=== PATIENT | male | born 1940 | race Caucasian/White ===

== ENCOUNTER → 2017-01-29 | Outpatient (CLI) | payer MEDICARE ==
[2017-01-29 08:44] LABS: CH 31.4; CHCM 33.8; HCT 50.8 % (39.0-53.0); HGB 16.2 gm/dL (13.0-17.5); MCH 29.8 pg (25.0-35.0); MCHC 31.9 g/dL (31.0-37.0); MCV 93.5 fL (80.0-100.0); Mean Platelet Volume 7.4; RBC 5.44 m/uL (4.30-5.90); RDW 15.1 % (11.5-15.5)
[2017-01-29 09:19] LABS: Anion Gap 9 mmol/L; Blood Urea Nitrogen 14 mg/dL (9-20); Calcium 9.2 mg/dL (8.4-10.2); Carbon Dioxide 28 mmol/L (22-30); Chloride 105 mmol/L (98-107); Glucose 97 mg/dL (74-99); Non-African American GFR(MDRD) >60 (>60 ml/min/1.73 sqM); Potassium 4.9 mmol/L (3.5-5.1); Sodium 142 mmol/L (137-145)
== END | disposition home or self-care (01) ==
LOC: LABWHC1 08:16
PROVIDERS: ATTEND Internal Medicine Interventional Cardiology
DX: I48.91 Unspecified atrial fibrillation (principal); I25.10 Atherosclerotic heart disease of native coronary artery without angina pectoris
CPT/HCPCS: 36415; 80048; 84439; 84443; 85027

== ENCOUNTER 2020-08-15 09:52 | Inpatient (IN) | payer MEDICARE ==
--- NOTE | 2020-08-15 10:34 | ED ---
SOB HPI - General Chief Complaint: Shortness of Breath Stated Complaint: SOB/weakness Time Seen by Provider: 08/15/20 10:05 Source: patient, RN notes reviewed Mode of arrival: ambulatory Limitations: no limitations - History of Present Illness Initial Comments: This is a 80-year-old male sent here by his family doctor if complain shortness of breath exertional dyspnea cough with bloody sputum over last couple weeks. He also is had orthopnea. He denies any overt fevers chills sweats chest pain he currently is not short of breath. No other current complaints or modifying factors MD Complaint: shortness of breath - Related Data Home Medications Medication Instructions Recorded Confirmed Atorvastatin [Lipitor] 40 mg PO DAILY 08/15/20 08/15/20 Carvedilol [Coreg] 3.125 mg PO DAILY 08/15/20 08/15/20 Escitalopram [Lexapro] 10 mg PO DAILY 08/15/20 08/15/20 Ezetimibe [Zetia] 10 mg PO DAILY 08/15/20 08/15/20 Warfarin Sodium 6 mg PO SUMOTUWETHSA 08/15/20 08/15/20 Warfarin Sodium 9 mg PO FR 08/15/20 08/15/20 lisinopriL [Zestril] 2.5 mg PO DAILY 08/15/20 08/15/20 Allergies Allergy/AdvReac Type Severity Reaction Status Date / Time No Known Allergies Allergy Verified 08/15/20 11:49 Review of Systems ROS Statement: Those systems with pertinent positive or pertinent negative responses have been documented in the HPI. ROS Other: All systems not noted in ROS Statement are negative. Past Medical History Past Medical History: Hypertension Additional Past Medical History / Comment(s): bypass surgery 2019 History of Any Multi-Drug Resistant Organisms: None Reported Past Surgical History: Coronary Bypass/CABG Past Psychological History: No Psychological Hx Reported Smoking Status: Never smoker Past Alcohol Use History: Occasional Past Drug Use History: None Reported General Exam - General Exam Comments Initial Comments: This is a well-developed well-nourished awake alert oriented 3 male Limitations: no limitations General appearance: alert, in no apparent distress Head exam: Present: atraumatic, normocephalic, normal inspection Eye exam: Present: normal appearance, PERRL, EOMI. Absent: scleral icterus, conjunctival injection, periorbital swelling ENT exam: Present: normal exam, mucous membranes moist Neck exam: Present: normal inspection. Absent: tenderness, meningismus, lymphadenopathy Respiratory exam: Present: normal lung sounds bilaterally. Absent: respiratory distress, wheezes, rales, rhonchi, stridor Cardiovascular Exam: Present: regular rate, normal rhythm, normal heart sounds. Absent: systolic murmur, diastolic murmur, rubs, gallop, clicks GI/Abdominal exam: Present: soft, normal bowel sounds. Absent: distended, tenderness, guarding, rebound, rigid Extremities exam: Present: normal inspection, full ROM, normal capillary refill. Absent: tenderness, pedal edema, joint swelling, calf tenderness Back exam: Present: normal inspection Neurological exam: Present: alert, oriented X3, CN II-XII intact Psychiatric exam: Present: normal affect, normal mood Skin exam: Present: warm, dry, intact, normal color. Absent: rash Course Vital Signs 08/15/20 08/15/20 08/15/20 09:53 10:59 11:30 Temperature 97.8 F Pulse Rate 68 71 Respiratory 18 18 20 Rate Blood Pressure 147/86 152/92 O2 Sat by Pulse 96 96 Oximetry Medical Decision Making - Medical Decision Making I did discuss findings with the patient and his son was present also with Dr. Brooks the patient will be admitted with pulmonary consultation. The lactic acid elevation likely secondary to viral depletion the patient's vitals are stable additionally his white blood cell count within normal limits he had no fever. He will however be given 1antibiotic at this time. - Lab Data Result diagrams: 08/15/20 10:37 08/15/20 10:37 Lab Results 08/15/20 08/15/20 08/15/20 Range/Units 10:37 10:37 10:37 WBC 6.3 (3.8-10.6) k/uL RBC 4.49 (4.30-5.90) m/uL Hgb 13.9 (13.0-17.5) gm/dL Hct 42.6 (39.0-53.0) % MCV 94.9 (80.0-100.0) fL MCH 30.9 (25.0-35.0) pg MCHC 32.6 (31.0-37.0) g/dL RDW 14.7 (11.5-15.5) % Plt Count 254 (150-450) k/uL MPV 7.7 Neutrophils % 71 % Lymphocytes % 16 % Monocytes % 10 % Eosinophils % 3 % Basophils % 0 % Neutrophils # 4.4 (1.3-7.7) k/uL Lymphocytes # 1.0 (1.0-4.8) k/uL Monocytes # 0.6 (0-1.0) k/uL Eosinophils # 0.2 (0-0.7) k/uL Basophils # 0.0 (0-0.2) k/uL PT 11.9 (9.0-12.0) sec INR 1.1 (<1.2) APTT 25.9 (22.0-30.0) sec Sodium 141 (137-145) mmol/L Potassium 3.7 (3.5-5.1) mmol/L Chloride 104 (98-107) mmol/L Carbon Dioxide 29 (22-30) mmol/L Anion Gap 8 mmol/L BUN 17 (9-20) mg/dL Creatinine 0.64 L (0.66-1.25) mg/dL Est GFR (CKD-EPI)AfAm >90 (>60 ml/min/1.73 sqM) Est GFR (CKD-EPI)NonAf >90 (>60 ml/min/1.73 sqM) Glucose 85 (74-99) mg/dL Plasma Lactic Acid Drake (0.7-2.0) mmol/L Calcium 8.8 (8.4-10.2) mg/dL Magnesium 2.0 (1.6-2.3) mg/dL Total Bilirubin 2.1 H (0.2-1.3) mg/dL AST 23 (17-59) U/L ALT 12 (4-49) U/L Alkaline Phosphatase 108 (38-126) U/L Creatine Kinase 66 (55-170) U/L Troponin I (0.000-0.034) ng/mL Total Protein 6.7 (6.3-8.2) g/dL Albumin 3.7 (3.5-5.0) g/dL 08/15/20 08/15/20 Range/Units 10:37 10:37 WBC (3.8-10.6) k/uL RBC (4.30-5.90) m/uL Hgb (13.0-17.5) gm/dL Hct (39.0-53.0) % MCV (80.0-100.0) fL MCH (25.0-35.0) pg MCHC (31.0-37.0) g/dL RDW (11.5-15.5) % Plt Count (150-450) k/uL MPV Neutrophils % % Lymphocytes % % Monocytes % % Eosinophils % % Basophils % % Neutrophils # (1.3-7.7) k/uL Lymphocytes # (1.0-4.8) k/uL Monocytes # (0-1.0) k/uL Eosinophils # (0-0.7) k/uL Basophils # (0-0.2) k/uL PT (9.0-12.0) sec INR (<1.2) APTT (22.0-30.0) sec Sodium (137-145) mmol/L Potassium (3.5-5.1) mmol/L Chloride (98-107) mmol/L Carbon Dioxide (22-30) mmol/L Anion Gap mmol/L BUN (9-20) mg/dL Creatinine (0.66-1.25) mg/dL Est GFR (CKD-EPI)AfAm (>60 ml/min/1.73 sqM) Est GFR (CKD-EPI)NonAf (>60 ml/min/1.73 sqM) Glucose (74-99) mg/dL Plasma Lactic Acid Drake 2.2 H* (0.7-2.0) mmol/L Calcium (8.4-10.2) mg/dL Magnesium (1.6-2.3) mg/dL Total Bilirubin (0.2-1.3) mg/dL AST (17-59) U/L ALT (4-49) U/L Alkaline Phosphatase (38-126) U/L Creatine Kinase (55-170) U/L Troponin I 0.027 (0.000-0.034) ng/mL Total Protein (6.3-8.2) g/dL Albumin (3.5-5.0) g/dL - EKG Data -: EKG Interpreted by Me EKG Comments: Sinus tachycardia with second-degree AV block 21 AV conduction rate 72. To 16 QRS 142 QT/QTC 476/521 - Radiology Data Radiology results: report reviewed (I did review the imaging and report evidence of bilateral lower lobe infiltrates also a 5.5 cm apparent mass in the right lower lobe), image reviewed Disposition Clinical Impression: Right lower lobe lung mass, Hemoptysis, Dehydration, Pneumonitis Disposition: ADMITTED IP TO THIS HOSP Condition: Fair Referrals: Akin Brooks MD [Primary Care Provider] - 1-2 days
[2020-08-15 11:02] LABS: Basophils % (A) 0 %; Eosinophils # (A) 0.2 k/uL (0-0.7); Eosinophils % (A) 3 %; HCT 42.6 % (39.0-53.0); HGB 13.9 gm/dL (13.0-17.5); Lymphocytes % (A) 16 %; MCH 30.9 pg (25.0-35.0); MCHC 32.6 g/dL (31.0-37.0); MCV 94.9 fL (80.0-100.0); Mean Platelet Volume 7.7; Monocytes # (A) 0.6 k/uL (0-1.0); Monocytes % (A) 10 %; Neutrophils # (A) 4.4 k/uL (1.3-7.7); Neutrophils % (A) 71 %; Platelet Count 254 k/uL (150-450); RBC 4.49 m/uL (4.30-5.90); RDW 14.7 % (11.5-15.5); WBC 6.3 k/uL (3.8-10.6)
[2020-08-15 11:06] LABS: INR 1.1 (<1.2); Partial Thromboplastin Time 25.9 sec (22.0-30.0); Prothrombin Time 11.9 sec (9.0-12.0)
[2020-08-15 11:07] LABS: ALT 12 U/L (4-49); AST 23 U/L (17-59); African American GFR (CKD) >90 (>60 ml/min/1.73 sqM); Albumin 3.7 g/dL (3.5-5.0); Alkaline Phosphatase 108 U/L (38-126); Blood Urea Nitrogen 17 mg/dL (9-20); Calcium 8.8 mg/dL (8.4-10.2); Carbon Dioxide 29 mmol/L (22-30); Creatine Kinase 66 U/L (55-170); Glucose 85 mg/dL (74-99); Non-African American GFR(CKD) >90 (>60 ml/min/1.73 sqM); Potassium 3.7 mmol/L (3.5-5.1); Sodium 141 mmol/L (137-145); Total Bilirubin 2.1 mg/dL (0.2-1.3); Total Protein 6.7 g/dL (6.3-8.2)
[2020-08-15 11:25] LABS: Anion Gap 8 mmol/L; Chloride 104 mmol/L (98-107)
--- NOTE | 2020-08-15 11:42 | XR ---
EXAMINATION TYPE: XR chest 2V DATE OF EXAM: 08/15/2020 COMPARISON: None HISTORY: 80 year-old male shortness of breath, difficulty breathing, coughing blood TECHNIQUE: PA and lateral views FINDINGS: Median sternotomy wires. Post-CABG clips the mediastinum. Heart borderline in size. There are small e ffusions with patchy opacities in the mid and lower lungs. Circumscribed 5 x 1 cm mass projecting at the right midlung. IMPRESSION: 1. Further clinical correlation recommended. There are small effusions with interstitial changes, pos sible mild pulmonary vascular congestion. 2. In addition, patchy infiltrates are noted in the lower lungs. Correlate to exclude pneumonia. 3. In addition, there is a possible 5.1 cm right midlung mass for which appropriate workup and manage ment is recommended.
[2020-08-15] MEDS ORDERED: cefTRIAXone IN SWFI 1,000 MG/10 ML SYRINGE IVP STA (12:12)
[2020-08-15] MEDS ORDERED: PNEUMONIA PROTOCOL UTILIZED 1 EACH MISC PO PRN (12:22)
[2020-08-15] MEDS ORDERED: AZITHROMYCIN 500 MG in SODIUM CHLORIDE 0.9% 250 ML IVPB STA (12:22)
[2020-08-15] MEDS ORDERED: SODIUM CHLORIDE 0.9% 1,000 ML IV SCH (12:30)
[2020-08-15] MEDS ORDERED: SODIUM CHLORIDE 0.9% 1,000 ML IV STA ×2 (12:33)
[2020-08-15] MEDS ORDERED: NON FORMULARY DRUG (Warfarin Sodium [Warfarin Sodium] 6 MG Tablet) PO SCH (12:45)
[2020-08-15] MEDS ORDERED: RX INFO: IV CONTRAST WAS GIVEN 1 EACH MISC MISCELLANE PRN (13:32)
--- NOTE | 2020-08-15 14:42 | CT ---
EXAMINATION TYPE: CT chest w con DATE OF EXAM: 08/15/2020 COMPARISON: Chest x-ray dated 08/15/2020 HISTORY: Lung mass. CT DLP: 531 mGycm Automated exposure control for dose reduction was used. CONTRAST: CT scan of the chest is performed with IV Contrast, patient injected with 100 mL of Isovue 300. FINDINGS: LUNGS: The lungs are remarkable for areas of pleural thickening with some associated calcification at the posterior lung bases along the pleural surfaces. There is thickened parenchymal bands especially at the lung bases, thickened interlobular septal lines. Some groundglass opacities are present at th e bilateral lung bases. Fluid attenuation courses along the fissures bilaterally, the soft tissue mas s described on CT corresponds to pseudotumor in the right midlung. There is no pneumothorax seen, dif ficult to exclude minimal effusion. The tracheobronchial tree is patent. MEDIASTINUM: There are no greater than 1 cm hilar or mediastinal lymph nodes. No pericardial effusi on is seen. Coronary artery calcifications are present in the heart is enlarged. Pulmonary artery pr ominence is noted, correlate for pulmonary artery hypertension AORTA: Saccular aneurysm present at the thoracic aorta at the level just distal to the left subclavi an artery origin, there are atheromatous changes, calcifications present at the aortic root and along the aortic wall. OTHER: Calcifications noted within the spleen and liver suggest old granulomatous disease. Arthropat hy noted within the left shoulder. There is thoracic spondylosis. Patient is post median sternotomy. IMPRESSION: Correlate for congestive heart failure, suspect there is fluid present along the fissure s, pseudotumor corresponding to chest x-ray abnormalities. Cardiomegaly, coronary artery disease, cor relate for pulmonary artery hypertension. 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 There is s ome pleural calcification, findings could be due to remote trauma or possibly asbestos related diseas e.
[2020-08-15] MEDS ORDERED: FUROSEMIDE 10 MG/ML 4 ML VIAL IV STA (14:46)
--- NOTE | 2020-08-15 15:22 | P.CNPUL ---
History of Present Illness Consult date: 08/15/20 Reason for consult: lung mass History of present illness: We were consulted to see this patient for lung mass. He is a 80-year-old male patient was been complaining of shortness of breath mainly exertional with some hemoptysis as were the patient described bloody sputum over the past few weeks. This hemoptysis is been going on for the past week as the patient has been About 3-4 Times a Day like the Mucus. I was able to see the mucus sample that was bloody and there were no blood clots of the chance of blood diseases identified. Note that the patient's Coumadin level was apparently elevated and the patient was asked to hold anticoagulation and at a time of his emergency department presentation, his PT/INR was essentially subtherapeutic and within normal limits. He takes Coumadin for long-term atrial fibrillation. His cardiac rhythm was sinus. He did have a left bundle branch block pattern. He denies having any fever or chills and denied having any chest pain. For that reason he presented to the emergency department and a chest x- ray showed cardiomegaly, pulmonary vascular congestion and a 5.1 cm right upper lobe/midlung mass.. Note patient is known to have coronary artery disease and he is undergone previous bypass surgery in 2019. He is known to have hypertension. His EKG showing some sinus tachycardia with a left bundle branch block pattern. The patient is known to have coronary artery disease. He is und ergone previous coronary artery bypass surgery. He has been followed up locally by Dr. Hall, his air hammer operator. He has not undergone any recent cardiac catheterization. He has also outpatient cardiac stress testing the results of which are not available. He does have also a harsh cardiac murmur on examination. No previous history of CVA. No associated lung cancer. 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 Does not use oxygen. Does not use any respiratory medications or inhalers or nebulizers. No recurrent pneumonias. No aspiration. I reviewed the computed tomography scan of the chest was completed on this patient. The findings are more consistent with pseudotumor in the right lung, as the patient had fluid attenuation along the fissures bilaterally along with soft tissue masses described in the right lung and left lower lobe consistent with pseudotumor. There was pleural thickening bilaterally along with calcification the posterior surface of the l ungs and thickening of the parenchymal bands especially in the lung bases along with thickening of interlobular septal lines. There are some limited Pseudomonas opacities bilaterally. No mediastinal lymphadenopathy.. COVID 19 testing was also negative. ProBNP level was elevated Review of Systems Constitutional: Denies chills, Denies fever Eyes: denies as per HPI, denies blurred vision, denies bulging eye, denies decreased vision, denies diplopia, denies discharge, denies dry eye, denies irritation, denies itching, denies pain, denies photophobia, denies loss of peripheral vision, denies loss of vision, denies tunnel vision/blind spots Ears, nose, mouth and throat: Denies headache, Denies sore throat Breasts: absent: as per HPI, gynecomastia Cardiovascular: Reports decreased exercise tolerance, Reports dyspnea on exertion, Reports orthopnea, Reports shortness of breath Respiratory: Reports as per HPI, Reports cough, Reports hemoptysis Gastrointestinal: Reports as per HPI Genitourinary: Reports as per HPI Musculoskeletal: Reports as per HPI Musculoskeletal: absent: ankle pain, ankle stiffness, ankle swelling Integumentary: Reports as per HPI Neurological: Reports as per HPI Psychiatric: Reports as per HPI Endocrine: Reports as per HPI Allergic/Immunologic: Reports as per HPI Past Medical History Past Medical History: Atrial Fibrillation, Coronary Artery Disease (CAD), Hyperlipidemia, Hypertension Additional Past Medical History / Comment(s): bypass surgery 2019 History of Any Multi-Drug Resistant Organisms: None Reported Past Surgical History: Coronary Bypass/CABG Past Psychological History: No Psychological Hx Reported Smoking Status: Never smoker Past Alcohol Use History: Occasional Past Drug Use History: None Reported - Past Family History Father Family Medical History: Cancer Additional Family Medical History / Comment(s): "spider cancer" Mother Family Medical History: No Reported History Additional Family Medical History / Comment(s): Mother lived to be 89yrs. Medications and Allergies Home Medications Medication Instructions Recorded Confirmed Type Atorvastatin [Lipitor] 40 mg PO DAILY 08/15/20 08/15/20 History Carvedilol [Coreg] 3.125 mg PO DAILY 08/15/20 08/15/20 History Escitalopram [Lexapro] 10 mg PO DAILY 08/15/20 08/15/20 History Ezetimibe [Zetia] 10 mg PO DAILY 08/15/20 08/15/20 History Warfarin Sodium 6 mg PO SUMOTUWETHSA 08/15/20 08/15/20 History Warfarin Sodium 9 mg PO FR 08/15/20 08/15/20 History lisinopriL [Zestril] 2.5 mg PO DAILY 08/15/20 08/15/20 History Allergies Allergy/AdvReac Type Severity Reaction Status Date / Time No Known Allergies Allergy Verified 08/15/20 11:49 Physical Exam Vitals: Vital Signs Temp Pulse Resp BP Pulse Ox 08/15/20 13:00 70 22 172/96 97 08/15/20 12:00 70 22 147/88 99 08/15/20 11:30 71 20 152/92 96 08/15/20 10:59 18 08/15/20 09:53 97.8 F 68 18 147/86 96 Intake and Output 08/14/20 08/15/20 08/15/20 22:59 06:59 14:59 Other: Weight 109.316 kg The patient appeared well nourished and normally developed. Vital signs as documented. Head exam is unremarkable. No scleral icterus or corneal arcus noted. Neck is without jugular venous distension, thyromegaly, or carotid bruits. Carotid upstrokes are brisk bilaterally. Lungs sounds are diminished in the patient's tach in lung bases bilaterally. Cardiac exam reveals the PMI to be normally sized and situated. Rhythm is regular. First and second heart sounds normal. There was a harsh grade 4/6 ejection murmur along the left lateral sternal border radiating to the apex and into the neck. rubs or gallops. Abdominal exam reveals normal bowel sounds, no masses, no organomegaly and no aortic enlargement. Extremities are showing some trace edema lower extremities bilaterally and both femoral and pedal pulses are normal.Examination of the skin revealed no evidence of significant rashes, suspicious appearing nevi or other concerning lesions.Neurologically, the patient is awake and alert and the patient does not have any focal neurological deficit. Cranial nerves are es sentially intact. Results - Laboratory Findings CBC and BMP: 08/15/20 10:37 08/15/20 10:37 PT/INR, D-dimer PT 11.9 sec (9.0-12.0) 08/15/20 10:37 INR 1.1 (<1.2) 08/15/20 10:37 Abnormal lab findings: Abnormal Labs 08/15/20 08/15/20 10:37 10:37 Creatinine 0.64 L Plasma Lactic Acid Drake 2.2 H* Total Bilirubin 2.1 H - Diagnostic Findings Chest x-ray: image reviewed CT scan - chest: image reviewed Assessment and Plan Plan: 1 acute dyspnea, likely secondary to underlying CHF. CT scan of the chest was noted. There is evidence of fluid within the patient is an pseudotumor formation. There is also evidence of some limited groundglass changes and thickening of the interlobular septae and this along with a elevated BNP level and JVDs, suggests the possibility of any decompensated CHF. However, the patient also has some chronic changes including pleural thickening especially in lung bases bilaterally. No clear indication of any interstitial lung disease or fibrosis at this point in time. Suspect valvular heart disease and the patient has a harsh cardiac valve, consider aortic stenosis 2 hemoptysis, currently off anticoagulation and the PT/INR is within normal limits and the patient's Coumadin is currently on hold and the exact cause is not clear. Could be related to valvular heart disease if any. Could be related to underlying taken bronchitis complicated further by intake of anticoagulation. The patient is currently on empiric antibiotic coverage. 3 coronary artery disease with previous bypass surgery 4 hypertension 5 hyperlipidemia 6 left bundle branch block pattern 7 Paroxysmal atrial fibrillation long-term medical condition with Coumadin with a subtherapeutic PT/INR. the patient has a left bundle branch block pattern and the patient is currently off anticoagulation for now 8 ex-smoker Plan Obtain records from cardiology regarding his previous cardiac status obtain an echocardiogram to assess valvular function and LV function put the patient on Lasix 40 mg IV push every 12 hours Repeat chest x-ray with next 24-48 hours and anticipate improvement in the size of the pseudotumor with diuresis Empiric antibiotic coverage, I'm agreeable to that Check pro calcitonin level Hold anticoagulation for a while and monitor the hemoptysis We'll continue to follow
[2020-08-15] MEDS: FUROSEMIDE 10 MG/ML 4 ML VIAL IV SCH (20:40)
[2020-08-16] MEDS ORDERED: carvediloL 3.125 MG TAB PO SCH (07:30)
[2020-08-16] MEDS: FUROSEMIDE 10 MG/ML 4 ML VIAL IV SCH ×2 (07:54→21:49)
[2020-08-16] MEDS: ATORVASTATIN 40 MG TAB PO SCH (07:54)
[2020-08-16] MEDS: AZITHROMYCIN 500 MG TAB PO SCH (07:55)
[2020-08-16] MEDS: ESCITALOPRAM 10 MG TAB PO SCH (07:55)
[2020-08-16] MEDS: EZETIMIBE 10 MG TAB PO SCH (07:55)
--- NOTE | 2020-08-16 08:13 | P.HPIM ---
History of Present Illness H&P Date: 08/16/20 Chief Complaint: Hemoptysis This is history and physical on a 80-year-old male with known history of CAD history of bypass and atrial fibrillation who came in with supratherapeutic INR last week. The patient had PT/INR recently in the office which was subtherapeutic but he's developed hemoptysis. Chest x-ray showed 5.1 right midlung's mass. Computed tomography scan shows more likely pseudotumor and CHF. The patient is resting comfortably feels better after having diuresis. No voiding difficulties. No chest pressure per se stated. No overt shortness of breath he is a former smoker who quit about 25 years ago, Review of Systems Constitutional: Reports fatigue, Denies fever Eyes: denies blurred vision, denies pain Ears, nose, mouth and throat: Denies headache, Denies sore throat Cardiovascular: Reports as per HPI Respiratory: Reports hemoptysis Gastrointestinal: Denies abdominal pain, Denies diarrhea, Denies nausea, Denies vomiting Musculoskeletal: Denies myalgias Integumentary: Denies pruritus, Denies rash Past Medical History Past Medical History: Atrial Fibrillation, Coronary Artery Disease (CAD), Hyperlipidemia, Hypertension Additional Past Medical History / Comment(s): bypass surgery 2019 History of Any Multi-Drug Resistant Organisms: None Reported Past Surgical History: Coronary Bypass/CABG Additional Past Surgical History / Comment(s): PCI with stents 2008, 4 vessel CABG at [facility] about 10 yrs ago, colonoscopy with benign polypectomy. Past Anesthesia/Blood Transfusion Reactions: No Reported Reaction Past Psychological History: No Psychological Hx Reported Smoking Status: Never smoker Past Alcohol Use History: Occasional Past Drug Use History: None Reported - Past Family History Father Family Medical History: Cancer Additional Family Medical History / Comment(s): "spider cancer" Mother Family Medical History: No Reported History Additional Family Medical History / Comment(s): Mother lived to be 89yrs. Medications and Allergies Home Medications Medication Instructions Recorded Confirmed Type Atorvastatin [Lipitor] 40 mg PO DAILY 08/15/20 08/15/20 History Carvedilol [Coreg] 3.125 mg PO DAILY 08/15/20 08/15/20 History Escitalopram [Lexapro] 10 mg PO DAILY 08/15/20 08/15/20 History Ezetimibe [Zetia] 10 mg PO DAILY 08/15/20 08/15/20 History Warfarin Sodium 6 mg PO SUMOTUWETHSA 08/15/20 08/15/20 History Warfarin Sodium 9 mg PO FR 08/15/20 08/15/20 History lisinopriL [Zestril] 2.5 mg PO DAILY 08/15/20 08/15/20 History Allergies Allergy/AdvReac Type Severity Reaction Status Date / Time No Known Allergies Allergy Verified 08/15/20 11:49 Physical Exam Vitals: Vital Signs Temp Pulse Pulse Resp BP BP Pulse Ox 08/16/20 07:34 100 08/16/20 07:29 97.9 F 65 16 142/82 97 08/16/20 03:50 98.4 F 60 16 124/74 97 08/15/20 19:15 98.1 F 51 L 17 155/74 98 08/15/20 18:00 98.0 F 71 20 149/73 99 08/15/20 17:00 70 20 143/79 98 08/15/20 15:00 55 L 20 131/86 99 08/15/20 14:00 77 22 141/81 98 08/15/20 13:00 70 22 172/96 97 08/15/20 12:00 70 22 147/88 99 08/15/20 11:30 71 20 152/92 96 08/15/20 10:59 18 08/15/20 09:53 97.8 F 68 18 147/86 96 Intake and Output 08/15/20 08/16/20 08/16/20 22:59 06:59 14:59 Intake Total 200 240 Output Total 1850 800 Balance -1650 -560 Intake: Oral 200 240 Output: Urine 1850 800 Other: # Voids 2 2 # Bowel Movements 1 - Constitutional General appearance: no acute distress - EENT Eyes: EOMI - Neck Neck: no lymphadenopathy - Respiratory Respiratory: bilateral: diminished - Cardiovascular Rhythm: irregularly irregular Heart sounds: normal: S1, S2 Abnormal Heart Sounds: no S3 Gallop - Gastrointestinal General gastrointestinal: soft, no tenderness - Integumentary Integumentary: no cellulitis - Psychiatric Psychiatric: A&O x's 3, appropriate affect, intact judgment & insight Results CBC & Chem 7: 08/15/20 10:37 08/15/20 10:37 Labs: Abnormal Lab Results - Last 24 Hours (Table) 08/15/20 08/15/20 Range/Units 10:37 10:37 Creatinine 0.64 L (0.66-1.25) mg/dL Plasma Lactic Acid Drake 2.2 H* (0.7-2.0) mmol/L Total Bilirubin 2.1 H (0.2-1.3) mg/dL Thrombosis Risk Factor Assmnt - Choose All That Apply Any of the Below Risk Factors Present?: Yes Each Factor Represents 1 point: Obesity (BMI >25) Other Risk Factors: Yes Each Risk Factor Represents 3 Points: Age 75 years or older Other congenital or acquired thrombophilia - If yes, enter type in comment: No Thrombosis Risk Factor Assessment Total Risk Factor Score: 4 Thrombosis Risk Factor Assessment Level: Moderate Risk Assessment and Plan (1) Acute systolic congestive heart failure Current Visit: Yes Status: Acute Code(s): I50.21 - ACUTE SYSTOLIC (CONGESTIVE) HEART FAILURE SNOMED Code(s): 482833901 (2) Dehydration Current Visit: Yes Status: Acute Code(s): E86.0 - DEHYDRATION SNOMED Code(s): 30185611 (3) Hemoptysis Current Visit: Yes Status: Acute Code(s): R04.2 - HEMOPTYSIS SNOMED Code(s): 05385281 (4) Right lower lobe lung mass Current Visit: Yes Status: Acute Code(s): R91.8 - OTHER NONSPECIFIC ABNORMAL FINDING OF LUNG FIELD SNOMED Code(s): 504931833 Plan: Computed tomography scan positive for probable CHF. Reconcile home medications but withhold anticoagulation given hemoptysis. Appreciate pulmonology input. Echocardiogram is pending. If there is decompensation, we'll consult cardiology. Check CBC and CMP in Time with Patient: Greater than 30
--- NOTE | 2020-08-16 09:16 | XR ---
EXAMINATION TYPE: XR chest 2V DATE OF EXAM: 08/16/2020 COMPARISON: 08/15/2020 HISTORY: 80-year-old male pneumonia TECHNIQUE: PA and lateral views FINDINGS: Median sternotomy wires and post-CABG clips. Heart remains borderline in size. Patchy lower lung opac ities persist. 5.2 cm mass right mid to lower lung persists. Trace effusions persist. IMPRESSION: 1. The 5.2 cm mass in the right mid to lower lung appears to correspond to fluid along the minor fiss ure when referring to the patient's recent CT. Correlate for possible CHF. 2. Suspect some underlying chronic pleural parenchymal changes, previous asbestos exposure. Clinicall y correlate. 3. Patchy bibasilar infiltrates could relate to patchy areas of pulmonary edema versus pneumonia. Ove rall unchanged.
--- NOTE | 2020-08-16 09:47 | P.CRDCN ---
History of Present Illness Consult date: 08/16/20 Chief complaint: Shortness of breath History of present illness: This is a 80-year-old gentleman who we're consulted to see today for further frantz luation of shortness of breath and congestive heart failure. The patient does have history of coronary artery disease and he underwent in the past coronary artery bypass grafting the details on that are unavailable at this point. Beside that he does have paroxysmal atrial fibrillation as well as hypertension and also dyslipidemia. For the last week or so he has been experiencing increasing shortness of breath with exertion and he noted that even laying flat in bed make him short of breath. No lower extremities edema or ankle edema. No symptoms of chest pain or chest discomfort. No dizziness or lightheadedness or any feeling of heart racing or fluttering or syncope. No change in the weight. The patient underwent initially a chest x-ray and that showed possible tumor in the mid right lung but subsequently computed tomography scan of the chest showed only finding consistent with heart failure and possible pseudotumor. Currently pulmonary service is on the case. The NT proBNP came in to be elevated. The patient was diagnosed with heart failure and he was started on Lasix. Beside that an echocardiogram was ordered and it is in process to be done. The patient does follow with Dr. Hall in the office on regular basis. On examination he definitely has bilateral rhonchi in both lung bases. No lower extremities edema. More importantly on examination he does have very significant systolic murmur at the right and left upper sternal border with significant diminished in the intensity of S2 finding consistent with at least moderate if not severe aortic stenosis. We'll follow-up on the echocardiogram which is in process to be done. Meanwhile I would recommend continue the patient on IV Lasix. Continue monitor the kidney function and electrolytes. Avoid any significant or aggressive drop in his blood pressure just because of the aortic stenosis. He denies any fever or chills. Denies any cough. Past Medical History Past Medical History: Atrial Fibrillation, Coronary Artery Disease (CAD), Hyperlipidemia, Hypertension Additional Past Medical History / Comment(s): bypass surgery 2019 History of Any Multi-Drug Resistant Organisms: None Reported Past Surgical History: Coronary Bypass/CABG Additional Past Surgical History / Comment(s): PCI with stents 2008, 4 vessel CABG at [facility] about 10 yrs ago, colonoscopy with benign polypectomy. Past Anesthesia/Blood Transfusion Reactions: No Reported Reaction Past Psychological History: No Psychological Hx Reported Smoking Status: Never smoker Past Alcohol Use History: Occasional Past Drug Use History: None Reported - Past Family History Father Family Medical History: Cancer Additional Family Medical History / Comment(s): "spider cancer" Mother Family Medical History: No Reported History Additional Family Medical History / Comment(s): Mother lived to be 89yrs. Medications and Allergies Home Medications Medication Instructions Recorded Confirmed Type Atorvastatin [Lipitor] 40 mg PO DAILY 08/15/20 08/15/20 History Carvedilol [Coreg] 3.125 mg PO DAILY 08/15/20 08/15/20 History Escitalopram [Lexapro] 10 mg PO DAILY 08/15/20 08/15/20 History Ezetimibe [Zetia] 10 mg PO DAILY 08/15/20 08/15/20 History Warfarin Sodium 6 mg PO SUMOTUWETHSA 08/15/20 08/15/20 History Warfarin Sodium 9 mg PO FR 08/15/20 08/15/20 History lisinopriL [Zestril] 2.5 mg PO DAILY 08/15/20 08/15/20 History Allergies Allergy/AdvReac Type Severity Reaction Status Date / Time No Known Allergies Allergy Verified 08/15/20 11:49 Physical Exam Vitals: Vital Signs Temp Pulse Pulse Resp BP BP Pulse Ox 08/16/20 07:34 100 08/16/20 07:29 97.9 F 65 16 142/82 97 08/16/20 03:50 98.4 F 60 16 124/74 97 08/15/20 19:15 98.1 F 51 L 17 155/74 98 08/15/20 18:00 98.0 F 71 20 149/73 99 08/15/20 17:00 70 20 143/79 98 08/15/20 15:00 55 L 20 131/86 99 08/15/20 14:00 77 22 141/81 98 08/15/20 13:00 70 22 172/96 97 08/15/20 12:00 70 22 147/88 99 08/15/20 11:30 71 20 152/92 96 08/15/20 10:59 18 08/15/20 09:53 97.8 F 68 18 147/86 96 Intake and Output 08/15/20 08/16/20 08/16/20 22:59 06:59 14:59 Intake Total 200 240 200 Output Total 1850 800 Balance -1650 -560 200 Intake: Oral 200 240 200 Output: Urine 1850 800 Other: # Voids 2 2 # Bowel Movements 1 - Constitutional General appearance: no acute distress - Respiratory Respiratory: bilateral: rales - Cardiovascular Rhythm: regular Heart sounds: normal: S1, S2 Abnormal Heart Sounds: systolic murmur Results 08/15/20 10:37 08/15/20 10:37 Cardiac Enzymes 08/15/20 08/15/20 Range/Units 10:37 10:37 AST 23 (17-59) U/L Troponin I 0.027 (0.000-0.034) ng/mL Coagulation 08/15/20 Range/Units 10:37 PT 11.9 (9.0-12.0) sec APTT 25.9 (22.0-30.0) sec CBC 08/15/20 Range/Units 10:37 WBC 6.3 (3.8-10.6) k/uL RBC 4.49 (4.30-5.90) m/uL Hgb 13.9 (13.0-17.5) gm/dL Hct 42.6 (39.0-53.0) % Plt Count 254 (150-450) k/uL Comprehensive Metabolic Panel 08/15/20 Range/Units 10:37 Sodium 141 (137-145) mmol/L Potassium 3.7 (3.5-5.1) mmol/L Chloride 104 (98-107) mmol/L Carbon Dioxide 29 (22-30) mmol/L BUN 17 (9-20) mg/dL Creatinine 0.64 L (0.66-1.25) mg/dL Glucose 85 (74-99) mg/dL Calcium 8.8 (8.4-10.2) mg/dL AST 23 (17-59) U/L ALT 12 (4-49) U/L Alkaline Phosphatase 108 (38-126) U/L Total Protein 6.7 (6.3-8.2) g/dL Albumin 3.7 (3.5-5.0) g/dL Current Medications Generic Name Dose Route Start Last Admin Trade Name Freq PRN Reason Stop Dose Admin Atorvastatin Calcium 40 mg 08/16/20 09:00 08/16/20 07:54 Atorvastatin 40 Mg Tab PO 40 mg DAILY CLIFTON Administration Azithromycin 500 mg 08/16/20 09:00 08/16/20 07:55 Azithromycin 500 Mg Tab PO 08/20/20 09:01 500 mg DAILY CL[facility] Administration Carvedilol 3.125 mg 08/16/20 07:30 08/16/20 07:54 Carvedilol 3.125 Mg Tab PO 3.125 mg W/BRKFST CL[place] Administration Ezetimibe 10 mg 08/16/20 09:00 08/16/20 07:55 Ezetimibe 10 Mg Tab PO 10 mg DAILY CL[facility] Administration Escitalopram Oxalate 10 mg 08/16/20 09:00 08/16/20 07:55 Escitalopram 10 Mg Tab PO 10 mg DAILY CL[facility] Administration Furosemide 40 mg 08/15/20 21:00 08/16/20 07:54 Furosemide 10 Mg/Ml 4 Ml Vial IV 40 mg Q12HR CL[facility] Administration Ceftriaxone Sodium 2 gm/ 50 mls @ 100 mls/hr 08/16/20 09:00 08/16/20 07:55 Sodium Chloride IVPB 08/18/20 09:01 100 mls/hr Q24HR CL[facility] Administration Lisinopril 2.5 mg 08/16/20 09:00 08/16/20 07:54 Lisinopril 2.5 Mg Tab PO 2.5 mg DAILY CL[facility] Administration Miscellaneous Information 1 each 08/15/20 12:22 Pneumonia Protocol Utilized 1 Each Misc PO ONCE PRN Per Protocol Miscellaneous Information 1 each 08/15/20 13:32 Rx Info: Iv Contrast Was Given 1 Each Misc MISCELLANE 08/17/20 13:32 DAILY PRN Per Protocol Intake and Output 08/15/20 08/16/20 08/16/20 22:59 06:59 14:59 Intake Total 200 240 200 Output Total 1850 800 Balance -1650 -560 200 Intake: Oral 200 240 200 Output: Urine 1850 800 Other: # Voids 2 2 # Bowel Movements 1 08/15/20 10:37 08/15/20 10:37 Assessment and Plan Assessment: Assessment #1 heart failure exacerbation secondary to probably aortic stenosis #2 aortic stenosis at least in the moderate intensity #3 shortness of breath secondary to the above #4 paroxysmal atrial fibrillation #5 coronary artery disease #6 multiple comorbid conditions Plan #1 continue the IV Lasix for additional 24 hours #2 continue monitor the kidney function and electrolytes #3 continue oral anticoagulation #4 avoid any drop in the blood pressure #5 follow-up on the echocardiogram #6 follow up
--- NOTE | 2020-08-16 10:39 | ECHOF ---
Referral Reason:CHF MEASUREMENTS -------- HEIGHT: 182.9 cm WEIGHT: 109.3 kg BP: 124/74 RVIDd: 4.1 cm (< 3.3) IVSd: 1.4 cm (0.6 - 1.1) LVIDd: 5.4 cm (3.9 - 5.3) LVPWd: 1.8 cm (0.6 - 1.1) IVSs: 1.8 cm LVIDs: 5.3 cm LVPWs: 1.7 cm LAESV Index (A-L): 58.72 ml/m MV EXCURSION: 21.475 mm (> 18.000) MV EF SLOPE: 122 mm/s (70 - 150) EPSS: 0.3 cm MV E Nathan: 0.75 m/s MV DecT: 193 ms MV A Nathan: 0.32 m/s MV E/A Ratio: 2.37 AV maxP.90 mmHg AV meanP.72 mmHg AR PHT: 509 ms RAP: 5.00 mmHg RVSP: 45.16 mmHg FINDINGS -------- Undetermined rhythm. This was a techncally difficult study with suboptimal views, , Lumason utilized for enhancement of im ages. The left ventricular size is normal. There is moderate concentric left ventricular hypertrophy. O verall left ventricular systolic function is mild-moderately impaired with, an EF between 40 - 45 %. The right ventricle is mild to moderately enlarged. LA is severely dilated >40 ml/m2 The right atrial size is normal. There is mild aortic regurgitation. There is severe aortic stenosis present. Peak/mean gradient a cross the Aortic Valve is 78.90mmHg / 52.72mmHg. Mild mitral regurgitation is present. Mild tricuspid regurgitation present. There is moderate pulmonary hypertension. The right ventric ular systolic pressure, as measured by Doppler, is 45.16mmHg. Trace/mild (physiologic) pulmonic regurgitation. The aortic root size is normal. There is no pericardial effusion. CONCLUSIONS -------- 1. This was a techncally difficult study with suboptimal views, , Lumason utilized for enhancement of images. 2. The left ventricular size is normal. 3. There is moderate concentric left ventricular hypertrophy. 4. Overall left ventricular systolic function is mild-moderately impaired with, an EF between 40 - 45 %. 5. The right ventricle is mild to moderately enlarged. 6. LA is severely dilated >40 ml/m2 7. The right atrial size is normal. 8. There is mild aortic regurgitation. 9. There is severe aortic stenosis present. 10. Peak/mean gradient across the Aortic Valve is 78.90mmHg / 52.72mmHg. 11. Mild mitral regurgitation is present. 12. Mild tricuspid regurgitation present. 13. There is moderate pulmonary hypertension. 14. The right ventricular systolic pressure, as measured by Doppler, is 45.16mmHg. 15. Trace/mild (physiologic) pulmonic regurgitation. 16. The aortic root size is normal. 17. There is no pericardial effusion. OCEAN FORWARDER: Miriam Hurt RDCS
--- NOTE | 2020-08-16 11:10 | P.PN ---
Subjective Progress Note Date: 08/16/20 Principal diagnosis: Congestive heart failure He is a 80-year-old male patient was been complaining of shortness of breath mainly exertional with some hemoptysis as were the patient described bloody sputum over the past few weeks. This hemoptysis is been going on for the past week as the patient has been About 3-4 Times a Day like the Mucus. I was able to see the mucus sample that was bloody and there were no blood clots of the chance of blood diseases identified. Note that the patient's Coumadin level was apparently elevated and the patient was asked to hold anticoagulation and at a time of his emergency department presentation, his PT/INR was essentially subtherapeutic and within normal limits. He takes Coumadin for long-term atrial fibrillation. His cardiac rhythm was sinus. He did have a left bundle branch block pattern. He denies having any fever or chills and denied having any chest pain. For that reason he presented to the emergency department and a chest x- ray showed cardiomegaly, pulmonary vascular congestion and a 5.1 cm right upper lobe/midlung mass.. Note patient is known to have coronary artery disease and he is undergone previous bypass surgery in 2019. He is known to have hypertension. His EKG showing some sinus tachycardia with a left bundle branch block pattern. The patient is known to have coronary artery disease. He is undergone previous coronary artery bypass surgery. He has been followed up locally by Dr. Hall, his fiber artist. He has not undergone any recent cardiac catheterization. He has also outpatient cardiac stress testing the results of which are not available. He does have also a harsh cardiac murmur on examination. No previous history of CVA. No associated lung cancer. 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 Does not use oxygen. Does not use any respiratory medications or inhalers or nebulizers. No recurrent pneumonias. No aspiration. I reviewed the computed tomography scan of the chest was completed on this patient. The findings are more consistent with pseudotumor in the right lung, as the patient had fluid attenuation along the fissures bilaterally along with soft tissue masses described in the right lung and left lower lobe consistent with pseudotumor. There was pleural thickening bilaterally along with calcification the posterior surface of the yakaov gs and thickening of the parenchymal bands especially in the lung bases along with thickening of interlobular septal lines. There are some limited Pseudomonas opacities bilaterally. No mediastinal lymphadenopathy.. COVID 19 testing was also negative. ProBNP level was elevated. The patient is seen today 08/16/2020 in follow-up on the regular medical floor. He is currently resting quite comfortably in bed. Awake and alert in no acute distress. Maintaining O2 saturations in the 90s on room air. He's afebrile. Hemodynamically stable. Computed tomography scan of the chest revealed evidence of congestive heart failure. Fluid in the fissure or spotting with pseudotumor. Cardiomegaly. Today's chest x-ray continues to show a 5.2 cm fluid collection in the minor fissure. Underlying chronic pleural parenchymal changes possible previous as best as exposure. Patchy bilateral infiltrates with pulmonary edema. Echocardiogram does reveal mild to moderately impaired left ventricular systolic function with ejection fraction 40-45%. Moderate pulmonary hypertension. There is noted severe aortic stenosis. Mean gradient 52.72 mmHg. He is on Lasix 40 mg IV every 12 hours. -2 L balance. Continue on bronchodilators and DAWSON inhibitors. Warfarin was on hold. The patient had a small amount of hemoptysis last night. No further hemoptysis today. He remains on ceftriaxone and azithromycin. Objective - Vital Signs Vital signs: Vital Signs Temp 97.9 F 08/16/20 07:29 Pulse 65 08/16/20 07:29 Resp 16 08/16/20 07:29 BP 142/82 08/16/20 07:29 Pulse Ox 100 08/16/20 07:34 Intake & Output 08/15/20 08/16/20 08/16/20 18:59 06:59 18:59 Intake Total 440 200 Output Total 1850 800 Balance -1850 -360 200 Weight 109.316 kg Intake: Oral 440 200 Output: Urine 1850 800 Other: # Voids 2 2 # Bowel Movements 1 - Exam GENERAL EXAM: Alert, very pleasant 80-year-old gentleman, on room air, comfortable in no apparent distress. HEAD: Normocephalic. EYES: Normal reaction of pupils, equal size. NOSE: Clear with pink turbinates. THROAT: No erythema or exudates. NECK: No masses, no JVD. CHEST: No chest wall deformity. LUNGS: Equal air entry with basilar crackles, no wheeze, rhonchi or dullness. CVS: S1 and S2 normal with a harsh grade 4/6 ejection murmur, regular rhythm. ABDOMEN: No hepatosplenomegaly, normal bowel sounds, no guarding or rigidity. SPINE: No scoliosis or deformity SKIN: No rashes CENTRAL NERVOUS SYSTEM: No focal deficits, tone is normal in all 4 extremities. EXTREMITIES: There is 1+ peripheral edema. No clubbing, no cyanosis. Peripheral pulses are intact. - Labs CBC & Chem 7: 08/15/20 10:37 08/15/20 10:37 Labs: Abnormal Lab Results - Last 24 Hours (Table) 08/15/20 08/15/20 Range/Units 10:37 10:37 Creatinine 0.64 L (0.66-1.25) mg/dL Plasma Lactic Acid Drake 2.2 H* (0.7-2.0) mmol/L Total Bilirubin 2.1 H (0.2-1.3) mg/dL Assessment and Plan Assessment: 1 Acute hypoxic respiratory failure secondary to an acute exacerbation of systolic congestive heart failure with severe aortic stenosis.. CT scan of the chest was noted. There is evidence of fluid within the patient is an pseudotumor formation. There is also evidence of some limited groundglass changes and thickening of the interlobular septae and this along with a elevated BNP level and JVDs, suggests the possibility of any decompensated CHF. However, the patient also has some chronic changes including pleural thickening especially in lung bases bilaterally. No clear indication of any interstitial lung disease or fibrosis at this point in time. Suspect valvular heart disease and the patient has a harsh cardiac valve, consider aortic stenosis On 08/16/2020 the patient is improved from the pulmonary standpoint. Currently on room air. Diuresed well. -2 L. Echocardiogram did reveal mild to moderately impaired left ventricular systolic function with ejection fraction 40-45%. There is also noted severe aortic stenosis with a mean gradient 52.72 mmHg. Moderate pulmonary hypertension. 2 hemoptysis, currently off anticoagulation and the PT/INR is within normal limits and the patient's Coumadin is currently on hold and the exact cause is not clear. Could be related to valvular heart disease. Could be related to underlying tracheobronchitis complicated further by intake of anticoagulation. The patient is currently on empiric antibiotic coverage in the form of ceftriax one and azithromycin. 3 coronary artery disease with previous bypass surgery [facility] [place] 4 hypertension 5 hyperlipidemia 6 left bundle branch block pattern 7 Paroxysmal atrial fibrillation long-term medical condition with Coumadin with a subtherapeutic PT/INR. the patient has a left bundle branch block pattern and the patient is currently off anticoagulation for now 8 ex-smoker Plan The patient was seen and evaluated by Dr. Caro Echocardiogram results reviewed Continue diuretics, beta blockers, DAWSON Continue empiric antibiotics, obtain pro-calcitonin Follow-up chest x-ray in a.m. We will continue to follow I, the cosigning physician, performed a history & physical examination of the patient. Lungs sounds with crackles in the bilateral posterior bases. Maintaining good O2 saturations in the 90s on room air. I discussed the assessment and plan of care with my nurse practitioner, Jaz Stringer. I attest to the above note as dictated by her.
[2020-08-17 06:45] LABS: Glucose,Whole Blood 87 mg/dL (75-99)
[2020-08-17] MEDS: ATORVASTATIN 40 MG TAB PO SCH (07:41)
[2020-08-17] MEDS: ESCITALOPRAM 10 MG TAB PO SCH (07:41)
[2020-08-17] MEDS: EZETIMIBE 10 MG TAB PO SCH (07:41)
[2020-08-17] MEDS: AZITHROMYCIN 500 MG TAB PO SCH (07:41)
[2020-08-17] MEDS: FUROSEMIDE 10 MG/ML 4 ML VIAL IV SCH ×2 (07:42→19:11)
--- NOTE | 2020-08-17 08:20 | XR ---
EXAMINATION TYPE: XR chest 1V portable DATE OF EXAM: 08/17/2020 CLINICAL HISTORY: Difficulty breathing and CHF progress study. TECHNIQUE: Single AP portable upright view of the chest is obtained. COMPARISON: Chest x-ray from one day earlier. CT chest 2 days ago. FINDINGS: Post-CABG changes with mediastinal clips and sternal wires redemonstrated. Degenerative ch alejandrina left shoulder again seen. There is chronic parenchymal change with bibasilar opacities and tiny bilateral pleural effusions including a pseudomass along the right minor fissure corresponding to loc ulated fluid collection are all redemonstrated. IMPRESSION: Chronic parenchymal changes and cardiomegaly with small to tiny bilateral pleural effusi ons. Bibasilar opacities could reflect areas of infiltrate on background scarring and/or atelectasis. No significant change from most recent x-ray.
--- NOTE | 2020-08-17 08:39 | P.PN ---
Subjective Progress Note Date: 08/17/20 Principal diagnosis: This is a continue progress note on a 72-year-old white male essentially admitted for CHF exacerbation. Appreciate pulmonology in consultation and cardiogenic in consultation. The patient seems more energetic. Echocardiogram does show severe aortic stenosis. The patient states he is emulating much better and feels much better. No significant chest pain no nausea or vomiting. Objective - Vital Signs Vital signs: Vital Signs Temp 98.4 F 08/17/20 07:41 Pulse 66 08/17/20 07:41 Resp 18 08/17/20 07:41 BP 148/77 08/17/20 07:41 Pulse Ox 97 08/17/20 07:41 Intake & Output 08/16/20 08/17/20 08/17/20 18:59 06:59 18:59 Intake Total 520 200 Balance 520 200 Intake: Oral 520 200 Other: # Voids 1 - EENT Eyes: Absent: abnormal pupil - Neck Neck: Absent: lymphadenopathy - Respiratory Respiratory: bilateral: CTA - Cardiovascular Rhythm: regular Heart sounds: normal: S1, S2 Abnormal Heart Sounds: Present: systolic murmur, click - Integumentary Integumentary: Absent: cellulitis - Psychiatric Psychiatric: Present: A&O x's 3 - Labs CBC & Chem 7: 08/15/20 10:37 08/15/20 10:37 Labs: Microbiology - Last 24 Hours (Table) 08/15/20 12:38 Blood Culture Gram Stain - Preliminary Blood Blood Culture - Preliminary Coagulase Negative Staph 08/16/20 07:35 Gram Stain - Preliminary Sputum Sputum Culture - Preliminary 08/15/20 12:38 Blood Culture - Final Blood 08/15/20 10:58 Blood Culture - Preliminary Blood No Growth after 24 hours Assessment and Plan (1) Acute systolic congestive heart failure Current Visit: Yes Status: Acute Code(s): I50.21 - ACUTE SYSTOLIC (CONGESTIVE) HEART FAILURE SNOMED Code(s): 830949657 (2) Dehydration Current Visit: Yes Status: Acute Code(s): E86.0 - DEHYDRATION SNOMED Cod e(s): 19297158 (3) Hemoptysis Current Visit: Yes Status: Acute Code(s): R04.2 - HEMOPTYSIS SNOMED Code(s): 25587628 (4) Right lower lobe lung mass Current Visit: Yes Status: Acute Code(s): R91.8 - OTHER NONSPECIFIC ABNORMAL FINDING OF LUNG FIELD SNOMED Code(s): 764889806 Plan: Echocardiogram shows so severe aortic stenosis with pulmonary hypertension. Appreciate cardiology input. Check CBC and CMP in a.m. Wean off of IV Lasix most likely today.
--- NOTE | 2020-08-17 10:42 | P.PN ---
Subjective Progress Note Date: 08/17/20 Principal diagnosis: Congestive heart failure He is a 80-year-old male patient was been complaining of shortness of breath mainly exertional with some hemoptysis as were the patient described bloody sputum over the past few weeks. This hemoptysis is been going on for the past week as the patient has been About 3-4 Times a Day like the Mucus. I was able to see the mucus sample that was bloody and there were no blood clots of the chance of blood diseases identified. Note that the patient's Coumadin level was apparently elevated and the patient was asked to hold anticoagulation and at a time of his emergency department presentation, his PT/INR was essentially subtherapeutic and within normal limits. He takes Coumadin for long-term atrial fibrillation. His cardiac rhythm was sinus. He did have a left bundle branch block pattern. He denies having any fever or chills and denied having any chest pain. For that reason he presented to the emergency department and a chest x- ray showed cardiomegaly, pulmonary vascular congestion and a 5.1 cm right upper lobe/midlung mass.. Note patient is known to have coronary artery disease and he is undergone previous bypass surgery in 2019. He is known to have hypertension. His EKG showing some sinus tachycardia with a left bundle branch block pattern. The patient is known to have coronary artery disease. He is undergone previous coronary artery bypass surgery. He has been followed up locally by Dr. Hall, his bundle clerk. He has not undergone any recent cardiac catheterization. He has also outpatient cardiac stress testing the results of which are not available. He does have also a harsh cardiac murmur on examination. No previous history of CVA. No associated lung cancer. 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 Does not use oxygen. Does not use any respiratory medications or inhalers or nebulizers. No recurrent pneumonias. No aspiration. I reviewed the computed tomography scan of the chest was completed on this patient. The findings are more consistent with pseudotumor in the right lung, as the patient had fluid attenuation along the fissures bilaterally along with soft tissue masses described in the right lung and left lower lobe consistent with pseudotumor. There was pleural thickening bilaterally along with calcification the posterior surface of the yaakov gs and thickening of the parenchymal bands especially in the lung bases along with thickening of interlobular septal lines. There are some limited Pseudomonas opacities bilaterally. No mediastinal lymphadenopathy.. COVID 19 testing was also negative. ProBNP level was elevated. The patient is seen today 08/16/2020 in follow-up on the regular medical floor. He is currently resting quite comfortably in bed. Awake and alert in no acute distress. Maintaining O2 saturations in the 90s on room air. He's afebrile. Hemodynamically stable. Computed tomography scan of the chest revealed evidence of congestive heart failure. Fluid in the fissure or spotting with pseudotumor. Cardiomegaly. Today's chest x-ray continues to show a 5.2 cm fluid collection in the minor fissure. Underlying chronic pleural parenchymal changes possible previous as best as exposure. Patchy bilateral infiltrates with pulmonary edema. Echocardiogram does reveal mild to moderately impaired left ventricular systolic function with ejection fraction 40-45%. Moderate pulmonary hypertension. There is noted severe aortic stenosis. Mean gradient 52.72 mmHg. He is on Lasix 40 mg IV every 12 hours. -2 L balance. Continue on bronchodilators and DAWSON inhibitors. Warfarin was on hold. The patient had a small amount of hemoptysis last night. No further hemoptysis today. He remains on ceftriaxone and azithromycin. The patient is seen today 08/17/2020 in follow-up on the regular medical floor. He is currently resting comfortably in bed. Awake and alert in no acute distress. Maintaining good O2 saturations in the upper 90s on 3 L/m per nasal cannula. He has a dry nonproductive cough. No fever chills or night sweats. Hemodynamically stable. One blood culture with coag-negative staph. Sputum cu lture pending. Blood glucose 87. Pro-calcitonin 0.04. He is continued on ceftriaxone and azithromycin. Remains on IV diuretics 40 mg every 12 hours. Asked x-ray continues to revealed chronic parenchymal changes and cardiomegaly with small bilateral pleural effusions. Objective - Vital Signs Vital signs: Vital Signs Temp 98.4 F 08/17/20 07:41 Pulse 66 08/17/20 07:41 Resp 18 08/17/20 08:30 BP 148/77 08/17/20 07:41 Pulse Ox 97 08/17/20 07:41 Intake & Output 08/16/20 08/17/20 08/17/20 18:59 06:59 18:59 Intake Total 520 200 150 Balance 520 200 150 Intake: Oral 520 200 150 Other: # Voids 1 # Bowel Movements 1 - Exam GENERAL EXAM: Alert, very pleasant 80-year-old gentleman, on 3 L nasal cannula, comfortable in no apparent distress. HEAD: Normocephalic. EYES: Normal reaction of pupils, equal size. NOSE: Clear with pink turbinates. THROAT: No erythema or exudates. NECK: No masses, no JVD. CHEST: No chest wall deformity. LUNGS: Equal air entry with basilar crackles, no wheeze, rhonchi or dullness. CVS: S1 and S2 normal with a harsh grade 4/6 ejection murmur, regular rhythm. ABDOMEN: No hepatosplenomegaly, normal bowel sounds, no guarding or rigidity. SPINE: No scoliosis or deformity SKIN: No rashes CENTRAL NERVOUS SYSTEM: No focal deficits, tone is normal in all 4 extremities. EXTREMITIES: There is 1+ peripheral edema. No clubbing, no cyanosis. Peripheral pulses are intact. - Labs CBC & Chem 7: 08/15/20 10:37 08/15/20 10:37 Labs: Microbiology - Last 24 Hours (Table) 08/15/20 12:38 Blood Culture Gram Stain - Preliminary Blood Blood Culture - Preliminary Coagulase Negative Staph 08/16/20 07:35 Gram Stain - Preliminary Sputum Sputum Culture - Preliminary 08/15/20 12:38 Blood Culture - Final Blood 08/15/20 10:58 Blood Culture - Preliminary Blood No Growth after 24 hours Assessment and Plan Assessment: 1 Acute hypoxic respiratory failure secondary to an acute exacerbation of systolic congestive heart failure with severe aortic stenosis.. CT scan of the chest was noted. There is evidence of fluid within the patient is an pseudotumor formation. There is also evidence of some limited groundglass changes and thickening of the interlobular septae and this along with a elevated BNP level and JVDs, suggests the possibility of any decompensated CHF. However, the patient also has some chronic changes including pleural thickening especially in lung bases bilaterally. No clear indication of any interstitial lung disease or fibrosis at this point in time. Pro-calcitonin within normal limits. On 08/16/2020 the patient is improved from the pulmonary standpoint. Currently on room air. Diuresed well. -2 L. Echocardiogram did reveal mild to moderately impaired left ventricular systolic function with ejection fraction 40-45%. There is also noted severe aortic stenosis with a mean gradient 52.72 mmHg. Moderate pulmonary hypertension. On 08/17/2020 the patient is improved from the pulmonary standpoint. He is quite anxious to go home. He remains on IV diuretics. Chest x-ray stable. 2 hemoptysis, currently off anticoagulation and the PT/INR is within normal limits and the patient's Coumadin is currently on hold and the exact cause is not clear. Could be related to valvular heart disease. Could be related to underlying tracheobronchitis complicated further by intake of anticoagulation. The patient is currently on empiric antibiotic coverage in the form of ceftriaxone and azithromycin. 3 coronary artery disease with previous bypass surgery Lamar Bojorquez 4 hypertension 5 hyperlipidemia 6 left bundle branch block pattern 7 Paroxysmal atrial fibrillation long-term medical condition with Coumadin with a subtherapeutic PT/INR. the patient has a left bundle branch block pattern and the patient is currently off anticoagulation for now 8 ex-smoker Plan The patient was seen and evaluated by Dr. Caro Continue diuretics, beta blockers, DAWSON Discontinue antibiotic IV diuretics per cardiology Probably home in the a.m. I, the cosigning physician, performed a history & physical examination of the patient. Lungs sounds with crackles in the bilateral posterior bases. Maintaining good O2 saturations in the 90s on 3 L/m per nasal cannula. I discussed the assessment and plan of care with my nurse practitioner, Jaz Stringer. I attest to the above note as dictated by her.
--- NOTE | 2020-08-17 11:13 | P.PN ---
Subjective Progress Note Date: 08/17/20 Principal diagnosis: Shortness of breath This is a 80-year-old gentleman who sees Dr. Hall in the office on a regular basis with a past medical history significant for aortic stenosis as well as paroxysmal atrial fibrillation as well as coronary artery disease who presented to the hospital complaining of shortness of breath. He was diagnosed with heart failure. Subsequently he underwent an echocardiogram which revealed normal left ventricular systolic function was evidence of critical aortic stenosis. Also the patient was bradycardic and because of that we held before echo on him. He was seen this morning. He asked to go home. He stated that the shortness of breath is better. On examination he still have crackles in both lung farris. No lower extremities edema. He denies any chest pain or chest discomfort. The heart rate continues to be in the 60s. Reviewing the EKG showed what it seems to be underlying atrial flutter. He is on oral anticoagulation. I will continue holding any AV donna [place] agents at this point. He continues to be on Lasix IV which I advised to continue for additional 24 hours. We'll continue monitor the kidney function as well as electrolytes. Objective - Vital Signs Vital signs: Vital Signs Temp 98.4 F 08/17/20 07:41 Pulse 43 L 08/17/20 10:53 Resp 18 08/17/20 08:30 BP 148/77 08/17/20 07:41 Pulse Ox 92 L 08/17/20 10:53 Intake & Output 08/16/20 08/17/20 08/17/20 18:59 06:59 18:59 Intake Total 520 200 150 Balance 520 200 150 Intake: Oral 520 200 150 Other: # Voids 1 # Bowel Movements 1 - Constitutional General appearance: Present: no acute distress - Respiratory Respiratory: bilateral: rales - Cardiovascular Heart sounds: normal: S1, S2 Abnormal Heart Sounds: Present: systolic murmur - Labs CBC & Chem 7: 08/15/20 10:37 08/15/20 10:37 Labs: Microbiology - Last 24 Hours (Table) 08/15/20 12:38 Blood Culture Gram Stain - Preliminary Blood Blood Culture - Preliminary Coagulase Negative Staph 08/16/20 07:35 Gram Stain - Preliminary Sputum Sputum Culture - Preliminary 08/15/20 12:38 Blood Culture - Final Blood 08/15/20 10:58 Blood Culture - Preliminary Blood No Growth after 24 hours Assessment and Plan Assessment: Assessment #1 heart failure exacerbation secondary to probably aortic stenosis #2 severe aortic stenosis #3 bradycardia #4 paroxysmal atrial fibrillation #5 multiple comorbid conditions Plan #1 continue the Lasix IV for additional 24 hours #2 continue monitor the kidney function and electrolytes #3 continue monitoring the heart rate #4 continue holding any AV donna [place] agents
[2020-08-17 11:29] LABS: ALT 10 U/L (4-49); AST 20 U/L (17-59); African American GFR (CKD) >90 (>60 ml/min/1.73 sqM); Albumin 3.4 g/dL (3.5-5.0); Albumin/Globulin Ratio 1.3; Alkaline Phosphatase 94 U/L (38-126); Anion Gap 5 mmol/L; Blood Urea Nitrogen 19 mg/dL (9-20); Calcium 8.7 mg/dL (8.4-10.2); Carbon Dioxide 36 mmol/L (22-30); Chloride 98 mmol/L (98-107); Globulin 2.6 g/dL; Glucose 101 mg/dL (74-99); Non-African American GFR(CKD) 89 (>60 ml/min/1.73 sqM); Potassium 4.1 mmol/L (3.5-5.1); Sodium 139 mmol/L (137-145); Total Bilirubin 0.9 mg/dL (0.2-1.3)
[2020-08-17] MEDS ORDERED: NON FORMULARY DRUG (Warfarin Sodium [Warfarin Sodium] 6 MG Tablet) PO SCH (12:32)
[2020-08-18 07:52] LABS: INR 1.1 (<1.2); Partial Thromboplastin Time 26.4 sec (22.0-30.0); Prothrombin Time 11.2 sec (9.0-12.0)
--- NOTE | 2020-08-18 07:58 | XR ---
EXAMINATION TYPE: XR chest 2V DATE OF EXAM: 08/18/2020 COMPARISON: Chest x-ray 08/17/2020 HISTORY: Congestive heart failure TECHNIQUE: Frontal and lateral views of the chest are obtained. FINDINGS: Pseudotumor in the right midlung appears smaller, there is some blunting the costophrenic angles. Heart size is less conspicuous although there are differences in technique, patient is rotate d and post median sternotomy. Aorta is dense. No evident pneumothorax. Interstitium is improved. Incr eased AP diameter chest with flattening the hemidiaphragms suggests underlying COPD. IMPRESSION: Improved aeration, volume status
[2020-08-18] MEDS: EZETIMIBE 10 MG TAB PO SCH (08:07)
[2020-08-18] MEDS: ESCITALOPRAM 10 MG TAB PO SCH (08:07)
[2020-08-18] MEDS: ATORVASTATIN 40 MG TAB PO SCH (08:07)
[2020-08-18] MEDS: FUROSEMIDE 10 MG/ML 4 ML VIAL IV SCH (08:07)
[2020-08-18] MEDS: AZITHROMYCIN 500 MG TAB PO SCH (08:07)
[2020-08-18 08:12] LABS: ALT 9 U/L (4-49); AST 21 U/L (17-59); African American GFR (CKD) >90 (>60 ml/min/1.73 sqM); Albumin 3.3 g/dL (3.5-5.0); Albumin/Globulin Ratio 1.2; Alkaline Phosphatase 93 U/L (38-126); Anion Gap 5 mmol/L; Blood Urea Nitrogen 20 mg/dL (9-20); Calcium 8.9 mg/dL (8.4-10.2); Carbon Dioxide 34 mmol/L (22-30); Chloride 98 mmol/L (98-107); Globulin 2.8 g/dL; Glucose 88 mg/dL (74-99); Non-African American GFR(CKD) >90 (>60 ml/min/1.73 sqM); Potassium 4.2 mmol/L (3.5-5.1); Sodium 137 mmol/L (137-145); Total Bilirubin 1.3 mg/dL (0.2-1.3); Total Protein 6.1 g/dL (6.3-8.2)
--- NOTE | 2020-08-18 11:39 | P.PN ---
Subjective Progress Note Date: 08/18/20 08/19/2020 the patient is being seen in follow-up. A pseudotumor in the right lung is improved considerably and the right hemidiaphragm is adequately visualized. There is improvement in the volume status. Cardiomegaly also improved. The patient is still on IV Lasix and the patient has been diuresed a dequately and he was feeling less short of breath. He was maintained on Lasix 40 mg IV every 12 hours. Negative fluid balance of at least 2-4 L for now. No chest pain. No significant cough or sputum production.no fever. No chills. No night sweats.no other complaints otherwise. He is able to lay down flat in bed. No swelling in lower extremities.she has severe aortic stenosis and will be ad dressed at a later stage on outpatient basis. He has severe valvular heart disease with severe aortic stenosis. The patient has no further bouts of hemoptysis during his hospital stay over the past 24-48 hours. He remains on anticoagulation. As mentioned, he has severe aortic stenosis. Objective - Vital Signs Vital signs: Vital Signs Temp 98.4 F 08/18/20 07:58 Pulse 68 08/18/20 07:58 Resp 20 08/18/20 07:58 BP 123/71 08/18/20 07:58 Pulse Ox 94 L 08/18/20 07:58 Intake & Output 08/17/20 08/18/20 08/18/20 18:59 06:59 18:59 Intake Total 150 240 Balance 150 240 Intake: Oral 150 240 Other: Voiding Method Toilet Toilet # Voids 3 3 # Bowel Movements 1 - Exam GENERAL EXAM: Alert, very pleasant 80-year-old gentleman, on room air oxygen HEAD: Normocephalic. EYES: Normal reaction of pupils, equal size. NOSE: Clear with pink turbinates. THROAT: No erythema or exudates. NECK: No masses, no JVD. CHEST: No chest wall deformity. LUNGS: Equal air entry with basilar crackles, no wheeze, rhonchi or dullness. CVS: S1 and S2 normal with a harsh grade 4/6 ejection murmur, regular rhythm. ABDOMEN: No hepatosplenomegaly, normal bowel sounds, no guarding or rigidity. SPINE: No scoliosis or deformity SKIN: No rashes CENTRAL NERVOUS SYSTEM: No focal deficits, tone is normal in all 4 extremities. EXTREMITIES: There is 1+ peripheral edema. No clubbing, no cyanosis. Peripheral pulses are intact. - Labs CBC & Chem 7: 08/15/20 10:37 08/18/20 06:05 Labs: Abnormal Lab Results - Last 24 Hours (Table) 08/18/20 Range/Units 06:05 Carbon Dioxide 34 H (22-30) mmol/L Total Protein 6.1 L (6.3-8.2) g/dL Albumin 3.3 L (3.5-5.0) g/dL Microbiology - Last 24 Hours (Table) 08/16/20 07:35 Gram Stain - Final Sputum Sputum Culture - Final Lexi albicans 08/15/20 12:38 Blood Culture Gram Stain - Final Blood Blood Culture - Final Coagulase Negative Staph Coagulase Negative Staph#2 08/15/20 10:58 Blood Culture - Preliminary Blood No Growth after 48 hours Assessment and Plan Plan: 1 acute dyspnea, likely secondary to underlying CHF. CT scan of the chest was noted. There is evidence of fluid within the patient is an pseudotumor formation. There is also evidence of some limited groundglass changes and thickening of the interlobular septae and this along with a elevated BNP level and JVDs, suggests the possibility of any decompensated CHF. However, the patient also has some chronic changes including pleural thickening especially in lung bases bilaterally. No clear indication of any interstitial lung disease or fibrosis at this point in time. Suspect valvular heart disease and the patient has a harsh cardiac valve, and the patient has severe aortic stenosis and his shortness of breath secondary to decompensated heart failure secondary to valvular heart disease.responded nicely to diuretics. His hemoptysis is also subsided. 2 hemoptysis sided., currently off anticoagulation and the PT/INR is within normal limits 3 coronary artery disease with previous bypass surgery 4 severe aortic stenosis 5 hyperlipidemia 6 left bundle branch block pattern 7 Paroxysmal atrial fibrillation long-term medical condition with Coumadin with a subtherapeutic PT/INR. the patient has a left bundle branch block pattern and the patient is currently off anticoagulation for now , his most recent EKG showed atrial flutter 8 hypertension Plan switch this patient to oral Lasix 40 mg by mouth daily Chest x-ray is showing improvement in his sputum was in the lungs bilaterally He does have crackles present in lung bases and the patient will need restrict Fluid Intake and Follow-Up with Cardiology Stop all antibiotics Anticoagulation can be resumed as the patient is not having any hemoptysis for now.ration has been taken warfarin on outpatient basis
[2020-08-18 12:14] LABS: HCT 39.1 % (39.6-50.0); HGB 12.6 g/dL (13.0-17.0); MCH 31.4 pg (27.0-32.0); MCHC 32.2 g/dL (32.0-37.0); MCV 97.5 fL (80.0-97.0); Mean Platelet Volume 10.2 fL (9.5-12.2); Platelet Count 264 X 10*3/uL (140-440); RBC 4.01 X 10*6/uL (4.40-5.60); WBC 6.42 X 10*3/uL (4.50-10.00)
[2020-08-18] MEDS ORDERED: LORazepam 0.5 MG TAB PO PRN (14:19)
[2020-08-18 15:16] VITALS: BP 126/69; PULSE 47; RESP 16; TEMP 97.7
--- NOTE | 2020-08-18 16:40 | P.DS ---
Providers Date of admission: 08/15/20 12:23 Expected date of discharge: 08/18/20 Attending physician: Akin Brooks Consults: 08/15/20 12:22 Consult Physician Routine Consulting Provider: Lexis Caro Consult Reason/Comments: Right lung mass, pneumonitis, hemoptysis Do you want consulting provider notified?: Yes 08/15/20 14:57 Consult Physician Routine Consulting Provider: Saud Lopes Consult Reason/Comments: CHF Do you want consulting provider notified?: Yes Primary care physician: Akin Brooks [facility] Course: 80-year-old male patient was been complaining of shortness of breath mainly exertional with some hemoptysis as were the patient described bloody sputum over the past few weeks. This hemoptysis is been going on for the past week as the patient has been About 3-4 Times a Day like the Mucus. I was able to see the mucus sample that was bloody and there were no blood clots of the chance of blood diseases identified. Note that the patient's Coumadin level was apparently elevated and the patient was asked to hold anticoagulation and at a time of his emergency department presentation, his PT/INR was essentially subtherapeutic and within normal limits. He takes Coumadin for long-term atrial fibrillation. His cardiac rhythm was sinus. He did have a left bundle branch block pattern. He denies having any fever or chills and denied having any chest pain. For that reason he presented to the emergency department and a chest x- ray showed cardiomegaly, pulmonary vascular congestion and a 5.1 cm right upper lobe/midlung mass.. Note patient is known to have coronary artery disease and he is undergone previous bypass surgery in 2019. He is known to have hypertension. His EKG showing some sinus tachycardia with a left bundle branch block pattern. The patient is known to have coronary artery disease. He is undergone previous coronary artery bypass surgery. He has been followed up locally by Dr. Hall, his case management director. He has not undergone any recent cardiac catheterization. He has also outpatient cardiac stress testing the results of which are not available. He does have also a harsh cardiac murmur on examination. No previous history of CVA. No associated lung cancer. 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 Does not use oxygen. Does not use any respiratory medications or inhalers or nebulizers. No recurrent pneumonias. No aspiration. I reviewed the computed tomography scan of the chest was completed on this patient. The findings are more consistent with pseudotumor in the right lung, as the patient had fluid attenuation along the fissures bilaterally along with soft tissue masses described in the right lung and left lower lobe consistent with pseudotumor. There was pleural thickening bilaterally along with calcification the posterior surface of the lungs and thickening of the parenchymal bands especially in the lung bases along with thickening of interlobular septal lines. There are some limited Pseudomonas opacities bilaterally. No mediastinal lymphadenopathy.. COVID 19 testing was also negative. ProBNP level was elevated. The patient is seen today 08/16/2020 in follow-up on the regular medical floor. He is currently resting quite comfortably in bed. Awake and alert in no acute distress. Maintaining O2 saturations in the 90s on room air. He's afebrile. Hemodynamically stable. Computed tomography scan of the chest revealed evidence of congestive heart failure. Fluid in the fissure or spotting with pseudotumor. Cardiomegaly. Today's chest x-ray continues to show a 5.2 cm fluid collection in the minor fissure. Underlying chronic pleural parenchymal changes possible previous as best as exposure. Patchy bilateral infiltrates with pulmonary edema. Echocardiogram does reveal mild to moderately impaired left ventricular systolic function with ejection fraction 40-45%. Moderate pulmonary hypertension. There is noted severe aortic stenosis. Mean gradient 52.72 mmHg. He is on Lasix 40 mg IV every 12 hours. -2 L balance. Continue on bronchodilators and DAWSON inhibitors. Warfarin was on hold. The patient had a small amount of hemoptysis last night. No further hemoptysis today. He remains on ceftriaxone and azithromycin. The patient is seen today 08/17/2020 in follow-up on the regular medical floor. He is currently resting comfortably in bed. Awake and alert in no acute distress. Maintaining good O2 saturations in the upper 90s on 3 L/m per nasal cannula. He has a dry nonproductive cough. No fever chills or night sweats. Hemodynamically stable. One blood culture with coag-negative staph. Sputum culture pending. Blood glucose 87. Pro-calcitonin 0.04. He is continued on ceftriaxone and azithromycin. Remains on IV diuretics 40 mg every 12 hours. Asked x-ray continues to revealed chronic parenchymal changes and cardiomegaly with small bilateral pleural effusions. 08/19/2020 the patient is being seen in follow-up. A pseudotumor in the right lung is improved considerably and the right hemidiaphragm is adequately visualized. There is improvement in the volume status. Cardiomegaly also improved. The patient is still on IV Lasix and the patient has been diuresed adequately and he was feeling less short of breath. He was maintained on Lasix 40 mg IV every 12 hours. Negative fluid balance of at least 2-4 L for now. No chest pain. No significant cough or sputum production.no fever. No chills. No night sweats.no other complaints otherwise. He is able to lay down flat in bed. No swelling in lower extremities.she has severe aortic stenosis and will be addressed at a later stage on outpatient basis. He has severe valvular heart disease with severe aortic stenosis. The patient has no further bouts of he moptysis during his hospital stay over the past 24-48 hours. He remains on anticoagulation. As mentioned, he has severe aortic stenosis. Patient has been cleared for discharge by pulmonary and cardiac service; follow- up as an outpatient in 1-2 weeks Patient Condition at Discharge: Fair Plan - Discharge Summary Discharge Rx Participant: No New Discharge Prescriptions: New Furosemide [Lasix] 40 mg PO DAILY #30 tablet Continue Escitalopram [Lexapro] 10 mg PO DAILY Warfarin Sodium 6 mg PO SUMOTUWETHSA Warfarin Sodium 9 mg PO FR lisinopriL [Zestril] 2.5 mg PO DAILY Ezetimibe [Zetia] 10 mg PO DAILY Atorvastatin [Lipitor] 40 mg PO DAILY Discontinued Carvedilol [Coreg] 3.125 mg PO DAILY Discharge Medication List Atorvastatin [Lipitor] 40 mg PO DAILY 08/15/20 [History] Escitalopram [Lexapro] 10 mg PO DAILY 08/15/20 [History] Ezetimibe [Zetia] 10 mg PO DAILY 08/15/20 [History] Warfarin Sodium 6 mg PO SUMOTUWETHSA 08/15/20 [History] Warfarin Sodium 9 mg PO FR 08/15/20 [History] lisinopriL [Zestril] 2.5 mg PO DAILY 08/15/20 [History] Furosemide [Lasix] 40 mg PO DAILY #30 tablet 08/18/20 [Rx] Follow up Appointment(s)/Referral(s): Neida Hall MD [STAFF PHYSICIAN] - 1 Week Akin Brooks MD [Primary Care Provider] - 1-2 days Lexis Caro MD [STAFF PHYSICIAN] - 1 Week Patient Instructions/Handouts: Heart Failure (DC), Aortic Stenosis (DC)
[2020-08-18] MEDS ORDERED: WARFARIN 3 MG TAB PO ONE (18:00)
--- NOTE | 2020-08-18 19:59 | P.PN ---
Subjective Shortness of breath This is a 80-year-old gentleman who sees Dr. Hall in the office on a regular basis with a past medical history significant for aortic stenosis as well as paroxysmal atrial fibrillation as well as coronary artery disease who presented to the hospital complaining of shortness of breath. He was diagnosed with heart failure. Subsequently he underwent an echocardiogram which revealed normal left ventricular systolic function was evidence of critical aortic stenosis. Also the patient was bradycardic and because of that discharge was held yesterday. No significant lightheadedness. Walking the halls without difficulty. No chest pain or SOB. Has been holding all AV donna blockers. Objective - Vital Signs Vital signs: Vital Signs Temp 97.7 F 08/18/20 14:00 Pulse 47 L 08/18/20 14:00 Resp 16 08/18/20 14:00 BP 126/69 08/18/20 14:00 Pulse Ox 90 L 08/18/20 14:00 Intake & Output 08/18/20 08/18/20 08/19/20 06:59 18:59 06:59 Intake Total 440 Balance 440 Intake: Oral 440 Other: Voiding Method Toilet Toilet # Voids 3 3 - Constitutional General appearance: Present: average body habitus, cooperative - EENT Eyes: Present: PERRLA ENT: Present: hard of hearing - Respiratory Respiratory: right: CTA - Cardiovascular Rhythm: regular Heart sounds: normal: S1, S2 Abnormal Heart Sounds: Present: systolic murmur - Gastrointestinal General gastrointestinal: Present: normal bowel sounds, soft - Integumentary Integumentary: Present: normal - Psychiatric Psychiatric: Present: A&O x's 3, appropriate affect - Labs CBC & Chem 7: 08/18/20 06:05 08/18/20 06:05 Labs: Abnormal Lab Results - Last 24 Hours (Table) 08/18/20 08/18/20 Range/Units 06:05 06:05 RBC 4.01 L (4.40-5.60) X 10*6/uL Hgb 12.6 L (13.0-17.0) g/dL Hct 39.1 L (39.6-50.0) % MCV 97.5 H (80.0-97.0) fL Carbon Dioxide 34 H (22-30) mmol/L Total Protein 6.1 L (6.3-8.2) g/dL Albumin 3.3 L (3.5-5.0) g/dL Microbiology - Last 24 Hours (Table) 08/15/20 10:58 Blood Culture - Preliminary Blood No Growth after 72 hours 08/16/20 07:35 Gram Stain - Final Sputum Sputum Culture - Final Lexi albicans 08/15/20 12:38 Blood Culture Gram Stain - Final Blood Blood Culture - Final Coagulase Negative Staph Coagulase Negative Staph#2 Assessment and Plan Assessment: Assessment #1 Acute on chronic diastolic heart failure #2 severe aortic stenosis, symptomatic #3 bradycardia, asymptomatic #4 paroxysmal atrial fibrillation #5 multiple comorbid conditions Plan Appears stable for DC home on PO Lasix. Discussed with patient and daughter that he will need aortic valve replacement. Hold AV donna blocking agents. F/u with DR Hall in 1 week.
--- NOTE | 2020-08-21 14:44 | CDI ---
Documentation Clarification Form Date: 08/21/20 From: Vicenta Almanzar Phone: Admit Date: 08/15/2020 12:23:00 PM Patient Name: Dennis Hancock Visit Number: [id number] Discharge Date: 08/18/2020 05:45:00 PM ATTENTION: The Clinical Documentation Specialists (CDI) and [facility] Coding Staff appreciate your assistance in clarifying documentation. Please respond to the clarification below the line at the bottom and electronically sign. The CDI & [facility] Coding staff will review the response and follow-up if needed. Please note: Queries are made part of the Legal Health Record. If you have any questions, please contact the author of this message via ITS. Dr. Aldo Garcia, Atrial Flutter is documented in your 08/17 PN. History/Risk factors: HTN w acute on chronic diastolic CHF, acute resp failure w hypoxia, hemoptysis, pulm HTN, aortic stenosis, PAF. Clinical Indicators: Reviewing the EKG showed what it seems to be underlying atrial flutter. He is on oral anti-coagulation. 08/18 EKG/telemetry: Atrial flutter with variable AV block with premature aberrantly conducted complexes, vent rate-52, QRS-174, QT/QTC-534/496. Treatment: oral anti-coagulation In your professional opinion, in order to capture the severity of condition; can you please clarify the type of Atrial Flutter if known? Typical/Type I Atypical/Type II Other, please specify Unable to determine Typical MTDD
== END 2020-08-18 17:45 | disposition home or self-care (01) | DRG 291 ==
LOC: EC 09:52 → 5NMEDONC 12:23 → 4SSUR 17:53
PROVIDERS: ADMIT Family Medicine; ATTEND Family Medicine
DX: I11.0 Hypertensive heart disease with heart failure (principal); J96.01 Acute respiratory failure with hypoxia; R04.2 Hemoptysis; I48.3 Typical atrial flutter; I27.20 Pulmonary hypertension, unspecified; I48.0 Paroxysmal atrial fibrillation; I50.33 Acute on chronic diastolic (congestive) heart failure; E86.0 Dehydration; I44.1 Atrioventricular block, second degree; Z20.822 Contact with and (suspected) exposure to COVID-19; J98.4 Other disorders of lung; I35.0 Nonrheumatic aortic (valve) stenosis; E78.5 Hyperlipidemia, unspecified; I44.7 Left bundle-branch block, unspecified; R00.1 Bradycardia, unspecified; I25.10 Atherosclerotic heart disease of native coronary artery without angina pectoris; Z95.1 Presence of aortocoronary bypass graft; Z79.01 Long term (current) use of anticoagulants; Z79.899 Other long term (current) drug therapy; Z87.891 Personal history of nicotine dependence; Z95.5 Presence of coronary angioplasty implant and graft; Z87.19 Personal history of other diseases of the digestive system; Z80.8 Family history of malignant neoplasm of other organs or systems
CPT/HCPCS: 36415; 71045; 71046; 71260; 80053; 82550; 83605; 83735; 83880; 84145; 84443; 84484; 85025; 85027; 85610; 85730; 87040; 87070; 87205; 87635; 93005; 93306; 94760; 96361; 96365; 96375; 99285

== ENCOUNTER → 2020-09-03 | Outpatient (CLI) | payer MEDICARE ==
[2020-09-03 14:53] LABS: HCT 45.4 % (39.0-53.0); HGB 15.7 gm/dL (13.0-17.5); MCH 32.7 pg (25.0-35.0); MCHC 34.7 g/dL (31.0-37.0); MCV 94.2 fL (80.0-100.0); Platelet Count 214 k/uL (150-450); RBC 4.82 m/uL (4.30-5.90); RDW 13.6 % (11.5-15.5); WBC 6.1 k/uL (3.8-10.6)
[2020-09-03 15:20] LABS: African American GFR (CKD) >90 (>60 ml/min/1.73 sqM); Anion Gap 9 mmol/L; Blood Urea Nitrogen 21 mg/dL (9-20); Carbon Dioxide 30 mmol/L (22-30); Chloride 101 mmol/L (98-107); Non-African American GFR(CKD) 85 (>60 ml/min/1.73 sqM); Potassium 4.1 mmol/L (3.5-5.1); Sodium 140 mmol/L (137-145)
== END | disposition home or self-care (01) ==
LOC: LABPAT 14:20
PROVIDERS: ATTEND Internal Medicine Interventional Cardiology
DX: Z01.818 Encounter for other preprocedural examination (principal); I35.0 Nonrheumatic aortic (valve) stenosis
CPT/HCPCS: 80051; 82565; 84520; 85027

== ENCOUNTER → 2020-10-12 | Outpatient (CLI) | payer MEDICARE ==
[2020-10-12 09:57] LABS: HCT 44.8 % (39.0-53.0); HGB 14.8 gm/dL (13.0-17.5); MCH 31.6 pg (25.0-35.0); MCV 95.7 fL (80.0-100.0); Mean Platelet Volume 7.3; Platelet Count 170 k/uL (150-450); RBC 4.68 m/uL (4.30-5.90); RDW 14.5 % (11.5-15.5)
[2020-10-12 10:05] LABS: INR 3.7 (<1.2); Prothrombin Time 35.2 sec (9.0-12.0)
[2020-10-12 10:14] LABS: African American GFR (CKD) >90 (>60 ml/min/1.73 sqM); Anion Gap 7 mmol/L; Blood Urea Nitrogen 13 mg/dL (9-20); Carbon Dioxide 29 mmol/L (22-30); Chloride 107 mmol/L (98-107); Glucose 87 mg/dL (74-99); Non-African American GFR(CKD) 89 (>60 ml/min/1.73 sqM); Potassium 4.7 mmol/L (3.5-5.1); Sodium 143 mmol/L (137-145)
== END | disposition home or self-care (01) ==
LOC: LABWHC1 09:29
PROVIDERS: ATTEND Internal Medicine Interventional Cardiology
DX: I48.91 Unspecified atrial fibrillation (principal); D64.9 Anemia, unspecified
CPT/HCPCS: 36415; 80048; 85027; 85610